=== PATIENT | male | born 1990 | race Two or more races ===

== ENCOUNTER → 2024-01-20 | Emergency (ER) | payer MEDICAID ==
[~2024-01-20] VITALS: Ht 170.2 cm; Wt 100.0 kg
[2024-01-20 09:33] VITALS: BP 142/90; PULSE 70; RESP 18; TEMP 97.2; O2SAT 99
== END | disposition home or self-care (01) ==
LOC: ER 08:35
DX: M75.102 Unspecified rotator cuff tear or rupture of left shoulder, not specified as traumatic (principal); Z88.8 Allergy status to other drugs, medicaments and biological substances
CPT/HCPCS: 73030; 99283; A4565

== ENCOUNTER 2024-01-30 08:36 | Emergency (ER) | payer MEDICAID ==
[~2024-01-30] VITALS: Ht 170.2 cm; Wt 99.5 kg
[2024-01-30 08:42] VITALS: BP 160/88; PULSE 82; RESP 16; TEMP 98; O2SAT 97
== END 2024-01-30 11:10 | disposition home or self-care (01) ==
LOC: ER 08:36
DX: M75.102 Unspecified rotator cuff tear or rupture of left shoulder, not specified as traumatic (principal); Z88.8 Allergy status to other drugs, medicaments and biological substances
CPT/HCPCS: 99281